=== PATIENT | female | born 1970 | race Caucasian/White ===

== ENCOUNTER → 2019-06-02 13:35 | Outpatient (BNVA) | payer MEDICARE, SELFPAY | PROVIDERS: PCP Urology; Visit Provider Urology | DX: N30.20 Other chronic cystitis without hematuria (principal) | CPT/HCPCS: 81001 ==

== ENCOUNTER → 2019-06-30 14:05 | Outpatient (BNVA) | payer MEDICARE, SELFPAY | PROVIDERS: PCP Urology; Visit Provider Otolaryngology | DX: J32.9 Chronic sinusitis, unspecified (principal); J32.4 Chronic pansinusitis; J34.89 Other specified disorders of nose and nasal sinuses; J34.2 Deviated nasal septum; J34.3 Hypertrophy of nasal turbinates; R47.02 Dysphasia; R13.10 Dysphagia, unspecified; H92.03 Otalgia, bilateral; H93.13 Tinnitus, bilateral | CPT/HCPCS: 31575; 99214 ==

== ENCOUNTER 2019-07-13 10:58 | Outpatient (CLI) | payer MEDICARE, SELFPAY ==
--- NOTE | 2019-07-13 11:30 | CT_ITS ---
WS: [id number] CT PARANASAL SINUSES HISTORY: chronic sinusitis TECHNIQUE: Contiguous 2.5 mm axial images obtained through the sinuses. Images are reconstructed in s agittal and coronal planes. All CT scans at [facility] use at least one of these dose opt imization techniques: automated exposure control; mA and/or kV adjustment per patient size (includes targeted exams where dose is matched to clinical indication); or iterative reconstruction. DLP: 462.53 mGy.cm COMPARISON: None available. Frontal sinuses: Normal. Sphenoid sinus: Normal. Ethmoid sinuses: Normal. Maxillary sinus: Thin septation in the superior antrum of each maxillary sinus. No air-fluid levels o r mucosal thickening. Ostiomeatal unit: Patent with no significant disease. There is a thin septum very close to the RIGHT ostiomeatal unit but not causing obstruction. 3 mm deviation of the nasal septum to the RIGHT without a bony spur. Soft tissues of the orbits and g lobes are negative. CT/CT sinus wo con* [id number] IMPRESSION: 1. No significant sinus disease. 2. Small thin septum in the superior maxillary antra. Do not appear to be caus ing significant obstruction. 3. Mild RIGHT deviation of nasal septum by 3 mm.
== END 2019-07-13 10:59 | disposition home or self-care (01) ==
LOC: CT 11:04
PROVIDERS: Family Provider Nurse Practitioner Family; PCP Nurse Practitioner Family; Visit Provider Otolaryngology
DX: J32.9 Chronic sinusitis, unspecified (principal); J34.2 Deviated nasal septum
CPT/HCPCS: 70486; 81001; 99214

== ENCOUNTER → 2019-08-31 15:00 | Outpatient (BNVA) | payer MEDICARE, SELFPAY | PROVIDERS: Family Provider Nurse Practitioner Family; PCP Nurse Practitioner Family; Visit Provider Urology | DX: N30.20 Other chronic cystitis without hematuria (principal); R39.89 Other symptoms and signs involving the genitourinary system | CPT/HCPCS: 81001 ==

== ENCOUNTER → 2020-02-08 09:57 | Outpatient (BNVA) | payer MEDICARE, SELFPAY | PROVIDERS: Family Provider Nurse Practitioner Family; PCP Nurse Practitioner Family; Visit Provider Urology | DX: R39.89 Other symptoms and signs involving the genitourinary system (principal); N30.10 Interstitial cystitis (chronic) without hematuria | CPT/HCPCS: 81001 ==

== ENCOUNTER 2020-02-16 08:11 | Emergency (ER) | payer MEDICARE, SELFPAY ==
[2020-02-16] VITALS (8 sets, daily range): BP systolic 104–118; BP diastolic 61–72; PULSE 67–88; RESP 16–18; TEMP 36.8–37.3; O2SAT 90–100; BMI 20.5
--- NOTE | 2020-02-16 08:51 | XRR_ITS ---
PROCEDURE INFORMATION: Exam: XR Chest, 1 View Exam date and time: 02/16/2020 9:20 AM Age: 49 years old Clinical indication: Other: Syncope; Prior surgery TECHNIQUE: Imaging protocol: XR of the chest Views: 1 view. COMPARISON: CR Chest 1 [place] [id number] 10/30/2017 11:31 AM FINDINGS: Lungs: Hyperinflation and mild interstitial prominence. Pleural space: No pleural effusion. Heart/Mediastinum: No cardiomegaly. Bones/joints: Unremarkable. XR/XR chest 1V portable [id number] IMPRESSION: Hyperinflation and mild interstitial prominence.
[2020-02-16] MEDS: ondansetron 2 mg/ML SDV 2 mL 4 MG IVP (09:10)
[2020-02-16] MEDS: sodium chloride 0.9% 500 ML 999 ML IV (09:10)
--- NOTE | 2020-02-16 09:19 | ED_ITS ---
HPI - SOB/Dyspnea General: Chief Complaint: Shortness of Breath/Dyspnea Stated Complaint: complainging of all covid symptoms, has been expos Time Seen by Provider: 02/16/20 08:18 History of Present Illness: HPI Narrative: 49-year-old female patient presents to the emergency department with 4 to 5-day onset of cough congestion, not feeling well, reports positive COVID exposure 10 days ago. She reports this morning, began to feel extremely bad, Reports complete exhaustion. Has lost sense of taste and smell. She reports fever of 103 this morning, took Tylenol and ibuprofen, fever has resolved. She reports nausea, decreased appetite, reports feels terrible. MD elicited complaint: shortness of breath, cough and pain with inspiration Context: recent illness Timing: constant Severity: moderate Exacerbating factors: exertion Relieving factors: rest Associated symptoms: Reports chest congestion, cough, fever(s), lightheadedness and nausea; Deny abdominal pain, chest pain, palpitations or vomiting Treatment prior to arrival: other (Ibuprofen and Tylenol) Review of Systems General: Reports: 10 or more systems reviewed and unremarkable except in HPI and below Const: Reports: fever(s), chills, body aches, change in appetite, fatigue and malaise Eyes: Denies: blurry vision or eye redness ENMT: Denies: throat pain, dental pain or disequilibrium Card: Reports: lightheadedness; Denies: chest pain or palpitations Resp: Reports: dyspnea, productive cough and chest congestion GI: Reports: nausea; Denies: abdominal pain, vomiting or diarrhea : Denies: difficulty voiding or dysuria Musc: Denies: back pain Skin/Breast: Denies: rash or pruritus Neuro: Denies: headache(s), weakness in extremities or behavioral changes Karl/Lymph: Denies: easy bruising PFSH ED PFSH: Medical History (Updated 02/16/20 @ 12:44 by LESLIE Leahy) Bladder pain Suspicious for interstitial cystitis. No improvement consistently on antibiotics. Clearly dietary irritants make a huge difference. Dysphasia Interstitial cystitis Nasal septal deformity Nasal turbinate hypertrophy OAB (overactive bladder) Odynophagia Otalgia Recurrent UTI ADAN (stress urinary incontinence, female) Tinnitus Urinary incontinence, mixed Surgical History History of bladder surgery History of cholecystectomy History of hysterectomy History of right knee surgery Family History Father Thyroid disease Mother , at age 75 Stroke Hypertension Social History Smoking and tobacco status: never smoked Alcohol intake: never Adopted: No Caregiver/support person: No Lives independently: No Household members: spouse Marital status: Current occupational status: disabled History of recent travel: No Current gender identity: Female Physical Exam Const: COMMON NORMALS: no acute distress, patient oriented x3, healthy appearing and alert GENERAL APPEARANCE: cooperative, comfortable and well hydrated HENMT: COMMON NORMALS: normocephalic, Normal external nose present and moist oral mucous membranes HEAD & SCALP: normocephalic NOSE: Normal external nose present Eye: COMMON NORMALS: Equal, round and reactive pupils present and EOMs intact bilaterally GENERAL EYE: appearance normal, both eyes and all related structures PUPIL: Yes Equal, round and reactive pupils present Neck/C-Spine: COMMON NORMALS: full ROM and no lymphadenopathy GENERAL: Yes normal visual inspection and Yes trachea midline CERVICAL SPINE: Yes cervical ROM normal Lymph: LYMPHATIC: no lymphadenopathy noted Chest: COMMONS NORMALS: normal inspection of the chest Resp: COMMON NORMALS: normal respiratory effort and clear to auscultation bilaterally AUSCULTATION: clear to auscultation bilaterally Cardio: COMMON NORMALS: regular rhythm, S1 normal heart sound present and S2 normal heart sound present RHYTHM: regular rhythm HEART SOUNDS: S1 normal heart sound present and S2 normal heart sound present GI: COMMON NORMALS: Soft to palpation and non-tender INSPECTION: Yes normal to inspection PALPATION: Yes Soft to palpation : COMMON NORMALS: Yes no CVA tenderness BLADDER/KIDNEY EXAM: Yes no CVA tenderness Back/Pelvis: COMMON NORMALS: no CVA tenderness and thoracic and lumbar spine normal to inspection Extremity: COMMON NORMALS: normal to inspection and capillary refill normal Neuro: COMMON NORMALS: patient oriented x3 and no focal motor deficits SENSORIUM/ORIENTATION: Yes alert Psych: COMMON NORMALS: mental status grossly normal, Normal thought process present and cooperative ACTIVITY/MOTOR BEHAVIOR: Yes appropriate eye contact THOUGHT PROCESS: Normal thought process present Skin: COMMON NORMALS: no rashes or lesions noted and turgor normal GENERAL SKIN EXAM: no rashes or lesions noted and turgor normal Course ED course: 49 year old female presents with COVID symptoms, during COVID screen, she developed epitaxis, controlled with pressure and cool compresses; therefor rapid screen not completed as she does not want another swab. O2 monitoring 93% with ambulation, she requests to go home after fluid and Zofran administered. Able to tolerate PO fluids, D-Dimer negative, Lactate normal, + leukopenia c/w COVID infection. CXR with hyperinflation and interstitial prominence. 2 L NC placed with O2 sat increased to 96%, she requests to go home, does not wish to stay for admission, Home oxygen device sent home with patient. She was counseled on COVID virus, risk of worsening hypoxia and to return to the ED if O2 sat decreases or if vomiting occurs with use of Zofran, verbalized understanding. Vital Signs: Vital signs: Vital Signs Temperature 99.2 F 02/16/20 14:07 Pulse Rate 69 02/16/20 14:07 Respiratory Rate 16 02/16/20 14:07 Blood Pressure 111/72 02/16/20 14:07 Pulse Oximetry 97 02/16/20 14:07 MDM - SOB/Dyspnea Lab Data: Labs: Lab Results 02/16/20 02/16/20 02/16/20 Range/Units 09:00 09:00 09:00 WBC 3.8 L (4.0-10.0) 10^3/ uL RBC 4.32 (4.1-5.3) 10^6/u L Hgb 13.5 (11.5-15.3) g/dL Hct 41.5 (37.0-47.0) % MCV 96.1 (81-99) fL MCH 31.3 (28.0-34.0) pg MCHC 32.5 (30.0-36.0) g/dL RDW 12.6 (12.1-15.1) % Plt Count 181 (130-400) 10^3/c mm MPV 9.6 (7.4-10.4) fL Neut % (Auto) 75.3 % Lymph % (Auto) 14.6 % Desha % (Auto) 9.5 % Eos % (Auto) 0.0 % Baso % (Auto) 0.3 % Neut # (Auto) 2.84 (1.8-7.7) 10^3/u L Lymph # (Auto) 0.6 L (0.8-4.8) 10^3/u L Desha # (Auto) 0.4 (0.2-0.9) 10^3/u L Eos # (Auto) 0.0 (0.0-0.8) 10^3/u L Baso # (Auto) 0.0 (0.0-0.1) 10^3/u L Nucleated RBC % (a uto) 0 % Nucleated RBCs # 0.0 /100WBC D-Dimer 0.31 (0-0.59) ug/mIFE U Sodium 137 (136-145) mmol/L Potassium 3.9 (3.5-5.1) mmol/L Chloride 100 (98-107) mmol/L Carbon Dioxide 24 (22-29) mmol/L Anion Gap 16.9 (5-19) BUN 19 (6-20) mg/dL Creatinine 0.6 (0.5-0.9) mg/dL GFR Calculation 106.3 (90-130) mL/min Glucose 92 (65-115) mg/dL Calculated Osmolal ity 286 (285-295) mOsm/k g Lactate (0.5-2.2) mmol/L Calcium 8.7 (8.5-10.5) mg/dL Ferritin 175 H (15-150) ng/mL Total Bilirubin 0.2 (0.15-1.2) mg/dL AST 24 (0-32) U/L ALT 22 (0-33) U/L Alkaline Phosphata se 64 (35-105) IU/L Total Protein 7.0 (6.6-8.7) g/dL Albumin 4.6 (3.5-5.2) g/dL Globulin 2.4 (1.3-4.6) g/dL 02/16/20 Range/Units 09:55 WBC (4.0-10.0) 10^3/ uL RBC (4.1-5.3) 10^6/u L Hgb (11.5-15.3) g/dL Hct (37.0-47.0) % MCV (81-99) fL MCH (28.0-34.0) pg MCHC (30.0-36.0) g/dL RDW (12.1-15.1) % Plt Count (130-400) 10^3/c mm MPV (7.4-10.4) fL Neut % (Auto) % Lymph % (Auto) % Desha % (Auto) % Eos % (Auto) % Baso % (Auto) % Neut # (Auto) (1.8-7.7) 10^3/u L Lymph # (Auto) (0.8-4.8) 10^3/u L Desha # (Auto) (0.2-0.9) 10^3/u L Eos # (Auto) (0.0-0.8) 10^3/u L Baso # (Auto) (0.0-0.1) 10^3/u L Nucleated RBC % (a uto) % Nucleated RBCs # /100WBC D-Dimer (0-0.59) ug/mIFE U Sodium (136-145) mmol/L Potassium (3.5-5.1) mmol/L Chloride (98-107) mmol/L Carbon Dioxide (22-29) mmol/L Anion Gap (5-19) BUN (6-20) mg/dL Creatinine (0.5-0.9) mg/dL GFR Calculation (90-130) mL/min Glucose (65-115) mg/dL Calculated Osmolal ity (285-295) mOsm/k g Lactate 0.7 (0.5-2.2) mmol/L Calcium (8.5-10.5) mg/dL Ferritin (15-150) ng/mL Total Bilirubin (0.15-1.2) mg/dL AST (0-32) U/L ALT (0-33) U/L Alkaline Phosphata se (35-105) IU/L Total Protein (6.6-8.7) g/dL Albumin (3.5-5.2) g/dL Globulin (1.3-4.6) g/dL Imaging Data^: CXR: Radiologist's impression: [address] [address] XRay Report Signed Patient: Melanie Schofield #: [id number] : 1970Acct#:[id number] Age/Sex: 49 / FADM Date: 02/16/20 Loc: ERRoom/Bed: Attending Dr: Ordering Provider/Ordering MD: Judy Neal Date of Service: 02/16/20 Procedure(s): XR chest 1V portable [id number] Accession Number(s): [id number] Report Number: [id number] PROCEDURE INFORMATION: Exam: XR Chest, 1 View Exam date and time: 02/16/2020 9:20 AM Age: 49 years old Clinical indication: Other: Syncope; Prior surgery TECHNIQUE: Imaging protocol: XR of the chest Views: 1 view. COMPARISON: CR Chest 1 [place] [id number] 10/30/2017 11:31 AM FINDINGS: Lungs: Hyperinflation and mild interstitial prominence. Pleural space: No pleural effusion. Heart/Mediastinum: No cardiomegaly. Bones/joints: Unremarkable. XR/XR chest 1V portable [id number] IMPRESSION: Hyperinflation and mild interstitial prominence. Dictated By:Akin Soto MD Signed By:Akin Soto MDSigned Date/Time:02/16/20 1019 DD/ 1018 Discharge Plan Discharge Patient Disposition: Home Clinical Impression: Suspected 2019-nCoV infection, Acute viral bronchitis Condition: Stable Prescriptions: New Zofran 4 mg tablet 4 mg PO 6XD PRN (Reason: nausea and vomiting) 4 Days Qty: 14 RF: 0 No Action celecoxib [Celebrex] 100 mg capsule 100 mg PO DAILY RF: 0 valacyclovir [Valtrex] 1 gram tablet 1,000 mg PO QDAY PRNRF: 0 tramadol 50 mg tablet 50 mg PO Q6H PRNRF: 0 tizanidine 4 mg capsule 4 mg PO BID PRNRF: 0 sumatriptan succinate 100 mg tablet 100 mg PO .prn RF: 0 clonazepam 2 mg tablet 2 mg PO QDAY RF: 0 diphenhydramine-acetaminophen [Tylenol PM Extra Strength] 25-500 mg tablet 1 tab PO Q6H PRNRF: 0 melatonin 10 mg capsule 10 mg PO QDAY RF: 0 loratadine [Claritin] 10 mg tablet 10 mg PO QDAY RF: 0 ibuprofen 800 mg tablet 800 mg PO Q8H RF: 0 Aimovig Autoinjector 140 mg/mL auto-injector 140 mg SUBCUT .as needed RF: 0 dexamethasone sodium phosphate 10 mg/mL solution 10 mg IM ONCE Qty: 1 RF: 0 Elmiron 100 mg capsule 200 mg PO BID Qty: 120 RF: 12 nitrofurantoin monohyd/m-cryst 100 mg capsule 100 mg PO BID RF: 0 Discharge Orders: Discharge Order (Routine); Ordered 02/16/20 Ordered By: Judy Neal Referrals: RENATA Gutiérrez, [employer] LAWYER [Primary Care Provider] - Discharge Diet: Advance as tolerated and Clear Liquid Discharge Activity: Limit activity as instructed Patient Instructions: Viral Syndrome (ED) Activity Restrictions/Additional Instructions: Rest at home until feeling better, quarantine to your home, COVID results will be back tomorrow Continue with oxygen therapy, continue to monitor your oxygen saturation, if oxygen saturation falls to 90% or below, you are to return to the emergency department Use Zofran as needed for nausea, return to the emergency room if you develop vomiting with use of Zofran If you develop difficulty breathing, inability to catch her breath, confusion or severe chest pain, you are to return to the emergency department Push fluids, appetite will be decreased, expected with COVID-19 illness Follow-up with your primary care physician via telemedicine in 2 to 3 days Discharge Date/Time: 02/16/20 14:09 Coding Level of Care Code ED Patient Access Representative for Chg Fwd Exam Comprehensive
--- NOTE | 2020-02-16 09:45 | PC.NURSE ---
PATIENT HAVING RIGHT SIDED EPISTAXIS WITH MODERATE BLEEDING LASTING APPROX 5 MINS. BLEEDING STOPPED WITH PRESSURE. PROVIDER NOTIFIED. NO NEW ORDERS. PRIMARY NURSE ALSO NOTIFIED.
[2020-02-16 09:54] LABS: Basophils % 0.3 %; Hematocrit 41.5 % (37.0-47.0); Hemoglobin 13.5 g/dL (11.5-15.3); Lymphocytes # 0.6 10^3/uL (0.8-4.8); Lymphocytes % 14.6 %; Mean Corpuscular HGB Conc 32.5 g/dL (30.0-36.0); Mean Corpuscular Hemoglobin 31.3 pg (28.0-34.0); Mean Corpuscular Volume 96.1 fL (81-99); Mean Platelet Volume 9.6 fL (7.4-10.4); Monocytes # 0.4 10^3/uL (0.2-0.9); Monocytes % 9.5 %; Neutrophils # 2.84 10^3/uL (1.8-7.7); Neutrophils % 75.3 %; Nucleated Red Blood Cells % 0 %; Platelet Count 181 10^3/cmm (130-400); Red Blood Count 4.32 10^6/uL (4.1-5.3); Red Cell Distribution Width 12.6 % (12.1-15.1); White Blood Count 3.8 10^3/uL (4.0-10.0)
[2020-02-16 10:11] LABS: D Dimer 0.31 ug/mIFEU (0-0.59)
[2020-02-16 10:17] LABS: Lactate (Lactic Acid level) 0.7 mmol/L (0.5-2.2)
--- NOTE | 2020-02-16 10:49 | PC.NURSE ---
O2 sat dropping down to 91-92 % Judy Patel gave verbal order to place NC @ 2 lpms
[2020-02-16 10:57] LABS: Alanine Aminotransferase 22 U/L (0-33); Albumin Level 4.6 g/dL (3.5-5.2); Alkaline Phosphatase 64 IU/L (35-105); Anion Gap 16.9 (5-19); Aspartate Amino Transferase 24 U/L (0-32); Blood Urea Nitrogen 19 mg/dL (6-20); Calcium 8.7 mg/dL (8.5-10.5); Carbon Dioxide 24 mmol/L (22-29); Chloride 100 mmol/L (98-107); Ferritin 175 ng/mL (15-150); Globulin 2.4 g/dL (1.3-4.6); Glomerular Filtration Rate 106.3 mL/min (90-130); Glucose 92 mg/dL (65-115); Osmolality Calculated 286 mOsm/kg (285-295); Potassium 3.9 mmol/L (3.5-5.1); Sodium 137 mmol/L (136-145); Total Bilirubin 0.2 mg/dL (0.15-1.2)
--- NOTE | 2020-02-16 13:31 | DCPLANNER ---
internet marketing manager was asked to arrange home O2 for patient. internet marketing manager spoke with patient was given verbal consent to use [facility] for oxygen, a patient choice letter was filled and signed picking [facility] for oxygen was scanned to put into patients chart. internet marketing manager faxed order for home O2 to HOME, they will bring oxygen to patient in the ED.
--- NOTE | 2020-02-16 14:09 | DCPLANNER ---
maintenance manager was asked to schedule a follow up appointment for patient with primary care. maintenance manager called the [facility] clinic, a follow up appointment is scheduled for Tuesday, February 18, 2020 at 1:00 with RENATA Gutiérrez. This will be a telehealth visit, clinic will call patient with appointment information.
[2020-02-18 12:22] LABS: Quest SARS-CoV-2 RNA DETECTED (NOT DETECTED)
--- NOTE | 2020-02-18 17:12 | PC.NURSE ---
Pt called and notified of positive COVID result.
--- NOTE | 2020-02-22 14:06 | DCPLANNER ---
Patient had a follow up appointment scheduled for 02.18.20 with [facility]. Patient did attend appointment.
== END 2020-02-16 14:09 | disposition home or self-care (01) ==
PROVIDERS: Emergency Provider Nurse Practitioner Family; PCP Nurse Practitioner Family
DX: U07.1 COVID-19 (principal); J20.8 Acute bronchitis due to other specified organisms
CPT/HCPCS: 12345; 71045; 80053; 82728; 83605; 85025; 85378; 87635; 96374; 96375; 99283; 99284; J2405; J7040

== ENCOUNTER → 2020-04-17 16:03 | Outpatient (BNVA) | payer MEDICARE, SELFPAY | PROVIDERS: PCP Nurse Practitioner Family; Visit Provider Nurse Practitioner Family | DX: N30.10 Interstitial cystitis (chronic) without hematuria (principal) | CPT/HCPCS: 81003 ==

== ENCOUNTER → 2020-05-03 08:28 | Outpatient (BNVA) | payer MEDICARE, SELFPAY | PROVIDERS: PCP Nurse Practitioner Family; Visit Provider Podiatrist Foot & Ankle Surgery | DX: S99.921A Unspecified injury of right foot, initial encounter (principal) | CPT/HCPCS: 73630; 97760; L4361 ==

== ENCOUNTER 2020-05-03 13:23 | Outpatient (CLI) | payer MEDICARE, SELFPAY | END 2020-05-03 13:24 | disposition home or self-care (01) | LOC: SPT 13:25 | PROVIDERS: PCP Nurse Practitioner Family; Visit Provider Podiatrist Foot & Ankle Surgery | DX: Z46.89 Encounter for fitting and adjustment of other specified devices (principal); M76.71 Peroneal tendinitis, right leg | CPT/HCPCS: 97760; L4361 ==

== ENCOUNTER 2020-05-24 15:18 | Outpatient (CLI) | payer MEDICARE, SELFPAY | END 2020-05-24 15:19 | disposition home or self-care (01) | LOC: SPT 15:18 | PROVIDERS: PCP Nurse Practitioner Family; Visit Provider Podiatrist Foot & Ankle Surgery | DX: Z46.89 Encounter for fitting and adjustment of other specified devices (principal); M76.71 Peroneal tendinitis, right leg | CPT/HCPCS: L1902 ==

== ENCOUNTER → 2020-05-25 10:54 | Outpatient (BNVA) | payer MEDICARE, SELFPAY | PROVIDERS: PCP Nurse Practitioner Family; Visit Provider Urology | DX: N30.10 Interstitial cystitis (chronic) without hematuria (principal) | CPT/HCPCS: 81003 ==

== ENCOUNTER → 2020-06-20 11:20 | Outpatient (BNVA) | payer MEDICARE, SELFPAY | PROVIDERS: PCP Nurse Practitioner Family; Visit Provider Nurse Practitioner Family | DX: N30.10 Interstitial cystitis (chronic) without hematuria (principal) | CPT/HCPCS: 81003 ==

== ENCOUNTER → 2020-07-03 13:21 | Outpatient (BNVA) | payer MEDICARE, SELFPAY | PROVIDERS: PCP Nurse Practitioner Family; Visit Provider Nurse Practitioner Family | DX: N30.10 Interstitial cystitis (chronic) without hematuria (principal); M54.5 Low back pain | CPT/HCPCS: 81003 ==

== ENCOUNTER → 2020-10-09 09:04 | Outpatient (BNVA) | payer MEDICARE, SELFPAY | PROVIDERS: PCP Nurse Practitioner Family; Visit Provider Nurse Practitioner Family | DX: Z13.6 Encounter for screening for cardiovascular disorders (principal); D64.9 Anemia, unspecified; L40.50 Arthropathic psoriasis, unspecified; E55.9 Vitamin D deficiency, unspecified; R53.83 Other fatigue; Z79.899 Other long term (current) drug therapy | CPT/HCPCS: 80053; 80061; 81003; 82306; 82607; 82746; 83036; 83550; 84439; 84443; 84550; 85025; 85651; 86038; 86140; 86431 ==

== ENCOUNTER → 2020-12-05 11:00 | Outpatient (BNVA) | payer MEDICARE, SELFPAY | PROVIDERS: PCP Nurse Practitioner Family; Visit Provider Internal Medicine Rheumatology | DX: M19.90 Unspecified osteoarthritis, unspecified site (principal); Z79.899 Other long term (current) drug therapy; Z11.59 Encounter for screening for other viral diseases; Z11.1 Encounter for screening for respiratory tuberculosis; R21 Rash and other nonspecific skin eruption; Z71.89 Other specified counseling; F17.200 Nicotine dependence, unspecified, uncomplicated; M45.9 Ankylosing spondylitis of unspecified sites in spine | CPT/HCPCS: 36415; 71046; 72100; 72202; 73130; 73630; 86480; 86704; 86803; 86812; 87340; 87806; 99204 ==

== ENCOUNTER 2020-12-05 12:35 | Outpatient (CLI) | payer MEDICARE, SELFPAY ==
--- NOTE | 2020-12-05 12:42 | XR_ITS ---
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 Findings: No fractures or dislocations are seen. The soft tissues are unremarkable. The joint spaces are normal No periarticular demineralization or calcifications are seen. XR/XR hand LT min 3V* [id number] Impression: Negative left hand.
--- NOTE | 2020-12-05 12:42 | XR_ITS ---
WS: [id number] Lumbar spine, 3 views, 12/05/2020 Clinical Data: Z79.899 - Other assistant terminal manager (current) drug therapy Comparison: None. Findings: No compression fractures or subluxation is seen. No disc space narrowing is seen. The transverse proc esses and SI joints are normal. There are clips in the right upper quadrant from a cholecystectomy. There is a large amount of fecal material in the colon. XR/XR lumbar spine 2-3V* 98117 Impression: Negative lumbar spine.
--- NOTE | 2020-12-05 12:42 | XR_ITS ---
WS: [id number] Right foot, 3 views, 12/05/2020 Clinical Data: Z79.899 - Other penitentiary (current) drug therapy Comparison: Right foot, 05/03/2020. Findings: No fractures or dislocations are seen. No bone destruction or erosion is noted. The joint spaces and soft tissues are normal. XR/XR foot RT min 3V* [id number] Impression: Negative right foot.
--- NOTE | 2020-12-05 12:42 | XR_ITS ---
WS: [id number] Right hand, 3 views, 12/05/2020 Clinical Data: Z79.899 - Other senior care (current) drug therapy Comparison: None. Findings: No fractures or dislocations are seen. The soft tissues are unremarkable. The joint space s are normal No periarticular demineralization or calcifications are seen. XR/XR hand RT min 3V* 11409 Impression: Negative right hand.
--- NOTE | 2020-12-05 12:42 | XR_ITS ---
WS: [id number] Left foot, 3 views, 12/05/2020 Clinical Data: Z79.899 - Other long term care pharmacist (current) drug therapy Comparison: None. Findings: No fractures or dislocations are seen. No bone destruction or erosion is noted. The joint spaces and soft tissues are normal. XR/XR foot LT min 3V* [id number] Impression: Negative left foot.
--- NOTE | 2020-12-05 12:42 | XR_ITS ---
WS: [id number] Chest 2 views, 12/05/2020 Clinical Data: M19.90 - Unspecified osteoarthritis, unspecified site Comparison: None. Findings: No nodules, masses or effusions are seen. The heart is normal. The pulmonary vascularity is not increased. No pneumonia or pneumothorax is seen. There is a clip in the right upper quadrant fro m a cholecystectomy. XR/XR chest 2V* [id number] Impression: Negative chest.
--- NOTE | 2020-12-05 12:42 | XR_ITS ---
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 Findings: The SI joints are normal in width. No erosion, sclerosis or destruction is seen. There are no fractur es or dislocations. The adjacent visualized pelvis and hips are unremarkable. There are surgical clips adjacent to the pu bic symphysis from a probable hernia repair. XR/XR sacroiliac jts m 3V [id number] Impression: Negative SI joints.
[2020-12-05 14:46] LABS: Hepatitis B Core AB, Total Non-Reactive (Nonreactive); Hepatitis B Surface Antigen Non-Reactive (Nonreactive); Hepatitis C Virus Antibody Non-Reactive (Nonreactive)
[2020-12-05 15:13] LABS: HIV 1 & 2 Antibody Non-Reactive (Non-Reactiv); HIV 1 & 2 Antigen Non-Reactive (Non-Reactiv)
[2020-12-07 15:02] LABS: Quantiferon Mitogen 7.68 IU/mL; Quantiferon Nil 0.01 IU/mL; Quantiferon TB Gold NEGATIVE (NEGATIVE)
[2020-12-08 15:46] LABS: HLA-B27 NEGATIVE (NEGATIVE)
== END 2020-12-05 12:36 | disposition home or self-care (01) ==
PROVIDERS: PCP Nurse Practitioner Family; Visit Provider Internal Medicine Rheumatology
DX: M19.90 Unspecified osteoarthritis, unspecified site (principal); M45.9 Ankylosing spondylitis of unspecified sites in spine; Z79.899 Other long term (current) drug therapy; Z11.59 Encounter for screening for other viral diseases; Z11.1 Encounter for screening for respiratory tuberculosis
CPT/HCPCS: 36415; 71046; 72100; 72202; 73130; 73630; 86480; 86704; 86803; 86812; 87340; 87806

== ENCOUNTER → 2021-01-15 09:20 | Outpatient (BNVA) | payer MEDICARE, SELFPAY | PROVIDERS: PCP Nurse Practitioner Family; Visit Provider Internal Medicine Rheumatology | DX: M19.90 Unspecified osteoarthritis, unspecified site (principal); Z71.89 Other specified counseling; Z79.899 Other long term (current) drug therapy | CPT/HCPCS: 36415; 80076; 82565; 85025; 86140 ==

== ENCOUNTER → 2021-01-23 14:04 | Outpatient (BNVA) | payer MEDICARE, SELFPAY | PROVIDERS: PCP Nurse Practitioner Family; Visit Provider Internal Medicine Rheumatology | DX: M19.90 Unspecified osteoarthritis, unspecified site (principal); R21 Rash and other nonspecific skin eruption; Z79.899 Other long term (current) drug therapy; Z82.61 Family history of arthritis; Z71.89 Other specified counseling | CPT/HCPCS: 99214 ==

== ENCOUNTER → 2021-04-25 13:27 | Outpatient (BNVA) | payer MEDICARE, SELFPAY | PROVIDERS: PCP Nurse Practitioner Family; Visit Provider Internal Medicine Rheumatology | DX: L40.50 Arthropathic psoriasis, unspecified (principal); R21 Rash and other nonspecific skin eruption; Z79.899 Other long term (current) drug therapy; Z71.89 Other specified counseling | CPT/HCPCS: 99214 ==

== ENCOUNTER → 2021-08-14 13:47 | Outpatient (BNVA) | payer MEDICARE, SELFPAY | PROVIDERS: PCP Nurse Practitioner Family; Visit Provider Internal Medicine Rheumatology | DX: L40.50 Arthropathic psoriasis, unspecified (principal); Z79.899 Other long term (current) drug therapy; Z82.61 Family history of arthritis; Z71.89 Other specified counseling | CPT/HCPCS: 36415; 80076; 82565; 85025; 86140; 99214 ==

== ENCOUNTER → 2021-09-27 11:41 | Outpatient (BNVA) | payer MEDICARE, SELFPAY | PROVIDERS: PCP Nurse Practitioner Family; Visit Provider Specialist | DX: M17.11 Unilateral primary osteoarthritis, right knee | CPT/HCPCS: 20610; J1100; J2795; J3301 ==

== ENCOUNTER → 2021-11-06 13:18 | Outpatient (BNVA) | payer MEDICARE, SELFPAY | PROVIDERS: PCP Nurse Practitioner Family; Visit Provider Podiatrist Foot & Ankle Surgery | DX: M76.71 Peroneal tendinitis, right leg (principal); M79.671 Pain in right foot | CPT/HCPCS: 20550; J1100; J3301; J3490 ==

== ENCOUNTER → 2021-11-21 08:41 | Outpatient (BNVA) | payer MEDICARE, SELFPAY | PROVIDERS: PCP Nurse Practitioner Family; Visit Provider Nurse Practitioner Family | DX: N30.10 Interstitial cystitis (chronic) without hematuria (principal) | CPT/HCPCS: 51700; 99213; J0690; J1644; J1720; J3490 ==

== ENCOUNTER → 2021-12-13 11:33 | Outpatient (BNVA) | payer MEDICARE, SELFPAY | PROVIDERS: PCP Nurse Practitioner Family; Visit Provider Nurse Practitioner Family | DX: Z79.899 Other long term (current) drug therapy (principal); R39.15 Urgency of urination; T63.481A Toxic effect of venom of other arthropod, accidental (unintentional), initial encounter | CPT/HCPCS: 80053; 85025; 86308 ==

== ENCOUNTER → 2021-12-25 15:07 | Outpatient (BNVA) | payer MEDICARE, SELFPAY | PROVIDERS: PCP Nurse Practitioner Family; Visit Provider Internal Medicine Rheumatology | DX: L40.50 Arthropathic psoriasis, unspecified (principal); L40.0 Psoriasis vulgaris; Z79.899 Other long term (current) drug therapy; Z71.89 Other specified counseling; Z82.61 Family history of arthritis | CPT/HCPCS: 99214 ==

== ENCOUNTER → 2021-12-27 09:56 | Outpatient (BNVA) | payer MEDICARE, SELFPAY | PROVIDERS: PCP Nurse Practitioner Family; Visit Provider Specialist | DX: M17.11 Unilateral primary osteoarthritis, right knee (principal) | CPT/HCPCS: 20610; J1100; J2795; J3301 ==

== ENCOUNTER → 2022-01-23 10:03 | Outpatient (BNVA) | payer MEDICARE, SELFPAY | PROVIDERS: PCP Nurse Practitioner Family; Visit Provider Nurse Practitioner Family | DX: N30.10 Interstitial cystitis (chronic) without hematuria (principal) | CPT/HCPCS: 51700; 99212; J1580; J1644; J1720; J3490 ==

== ENCOUNTER → 2022-03-05 14:54 | Outpatient (BNVA) | payer MEDICARE, SELFPAY | PROVIDERS: Visit Provider Internal Medicine Rheumatology | DX: L40.50 Arthropathic psoriasis, unspecified (principal); Z79.899 Other long term (current) drug therapy; Z71.89 Other specified counseling; Z82.61 Family history of arthritis | CPT/HCPCS: 80076; 82565; 85025; 86140; 99214 ==

== ENCOUNTER → 2022-03-21 10:35 | Outpatient (BNVA) | payer MEDICARE, SELFPAY | PROVIDERS: Visit Provider Obstetrics & Gynecology | DX: Z12.4 Encounter for screening for malignant neoplasm of cervix (principal) | CPT/HCPCS: 87624 ==

== ENCOUNTER → 2022-04-18 14:07 | Outpatient (BNVA) | payer MEDICARE, SELFPAY | PROVIDERS: Visit Provider Specialist | DX: M17.11 Unilateral primary osteoarthritis, right knee (principal); Z71.89 Other specified counseling | CPT/HCPCS: 20610; 73560; 73565; 99213; J1100; J2795; J3301 ==

== ENCOUNTER → 2022-07-11 10:37 | Outpatient (BNVA) | payer MEDICARE, SELFPAY | PROVIDERS: PCP Nurse Practitioner; Visit Provider Specialist | DX: M17.11 Unilateral primary osteoarthritis, right knee (principal); Z71.89 Other specified counseling | CPT/HCPCS: 20610; J1100; J2795; J3301 ==

== ENCOUNTER → 2022-08-06 14:25 | Outpatient (BNVA) | payer MEDICARE, SELFPAY | PROVIDERS: PCP Nurse Practitioner; Visit Provider Internal Medicine Rheumatology | DX: L40.50 Arthropathic psoriasis, unspecified (principal); L40.0 Psoriasis vulgaris; Z79.899 Other long term (current) drug therapy; Z71.89 Other specified counseling | CPT/HCPCS: 99204 ==

== ENCOUNTER → 2022-10-17 08:37 | Outpatient (BNVA) | payer MEDICARE, SELFPAY | PROVIDERS: PCP Nurse Practitioner; Visit Provider Specialist | DX: M17.11 Unilateral primary osteoarthritis, right knee (principal) | CPT/HCPCS: 20610; J1100; J2795; J3301 ==

== ENCOUNTER → 2022-11-06 09:24 | Outpatient (BNVA) | payer MEDICARE, SELFPAY | PROVIDERS: PCP Nurse Practitioner; Visit Provider Nurse Practitioner Family | DX: R30.0 Dysuria (principal) | CPT/HCPCS: 81000 ==

== ENCOUNTER → 2022-11-12 13:24 | Outpatient (BNVA) | payer MEDICARE, SELFPAY | PROVIDERS: PCP Nurse Practitioner; Visit Provider Internal Medicine Rheumatology | DX: L40.50 Arthropathic psoriasis, unspecified (principal); Z79.899 Other long term (current) drug therapy; L40.0 Psoriasis vulgaris; Z71.89 Other specified counseling | CPT/HCPCS: 99214 ==

== ENCOUNTER → 2023-01-02 13:33 | Outpatient (BNVA) | payer MEDICARE, SELFPAY | PROVIDERS: PCP Nurse Practitioner; Referring Provider Nurse Practitioner Family; Visit Provider Physician Assistant | DX: M54.40 Lumbago with sciatica, unspecified side (principal); M54.17 Radiculopathy, lumbosacral region; M47.816 Spondylosis without myelopathy or radiculopathy, lumbar region | CPT/HCPCS: 72110; 99203 ==

== ENCOUNTER 2023-01-16 13:29 | Outpatient (CLI) | payer MEDICARE, SELFPAY ==
--- NOTE | 2023-01-16 13:45 | MR_ITS ---
WS: [id number] MRI LUMBAR SPINE NONCONTRAST TECHNIQUE: Sagittal T1, T2 and STIR imaging. Axial T1 and T2 imaging. CLINICAL INFORMATION: M54.40 - Lumbago with sciatica, unspecified side COMPARISON: None. FINDINGS: Mild lumbar curve. No acute compression. No high-grade central canal stenosis. L1-L2: Mild facet arthropathy. Spinal canal and foramen are patent. L2-L3: Mild facet arthropathy. Spinal canal and foramen are patent. L3-L4: No significant disc bulging. Mild facet arthropathy. Spinal canal and foramina are patent. L4-L5: Mild annular bulging. Impingement LEFT subarticular recess and traversing LEFT L5 nerve root. Moderate facet arthropathy. Spinal canal and foramen are patent. L5-S1: Mild annular bulging. Slight contact of the traversing LEFT S1 nerve root. Moderate facet arth ropathy. Spinal canal and foramen are patent. Visualized pelvic bony structures: Normal. Paravertebral soft tissues: Normal. IMPRESSION: 1. Mild lumbar curve. No acute compression. No high-grade central canal stenosis. 2. Mild annular bulging L4-5 impinges the LEFT subarticular recess and traversing LEFT L5 nerve root . 3. Slight narrowing of the LEFT L5-S1 subarticular recess. 4. Moderate facet arthropathy L3-L5.
== END 2023-01-16 13:30 | disposition home or self-care (01) ==
PROVIDERS: PCP Nurse Practitioner; Visit Provider Nurse Practitioner Family
DX: M47.816 Spondylosis without myelopathy or radiculopathy, lumbar region (principal); M54.40 Lumbago with sciatica, unspecified side; G89.29 Other chronic pain
CPT/HCPCS: 72148

== ENCOUNTER → 2023-01-30 13:59 | Outpatient (BNVA) | payer MEDICARE, SELFPAY | PROVIDERS: PCP Nurse Practitioner; Visit Provider Physician Assistant | DX: M47.816 Spondylosis without myelopathy or radiculopathy, lumbar region (principal) | CPT/HCPCS: 99213 ==

== ENCOUNTER 2023-05-07 15:01 | Outpatient (CLI) | payer MEDICARE, SELFPAY ==
--- NOTE | 2023-05-07 15:00 | MM_ITS ---
WS: [id number] BILATERAL 3D TOMOSYNTHESIS DIGITAL SCREENING MAMMOGRAPHY WITH CAD CLINICAL INFORMATION: Z12.39 - Encounter for other screening for malignant neop... HISTORY: Screening mammogram. No current complaints. COMPARISON: None. TECHNIQUE: Bilateral CC and MLO views. FINDINGS: Scattered fibroglandular densities bilaterally. No suspicious focal mass, asymmetry, calcifications, or architectural distortion. No evidence of malignancy. IMPRESSION: MM/[place] [id number] BI-RADS: 1-Negative FOLLOW UP: 1 Year Follow-up Recommend return to annual screening mammography.
== END 2023-05-07 15:02 | disposition home or self-care (01) ==
LOC: MOBLMAM 15:05
PROVIDERS: PCP Nurse Practitioner; Visit Provider Nurse Practitioner
DX: Z12.31 Encounter for screening mammogram for malignant neoplasm of breast
CPT/HCPCS: 77063; 77067

== ENCOUNTER → 2023-05-12 08:31 | Outpatient (BNVA) | payer MEDICARE, SELFPAY | PROVIDERS: PCP Nurse Practitioner; Visit Provider Nurse Practitioner | DX: M17.11 Unilateral primary osteoarthritis, right knee | CPT/HCPCS: 20610; J1100; J2795; J3301 ==

== ENCOUNTER → 2023-08-22 08:33 | Outpatient (BNVA) | payer MEDICARE, SELFPAY | PROVIDERS: PCP Nurse Practitioner; Visit Provider Specialist | DX: M17.11 Unilateral primary osteoarthritis, right knee (principal) | CPT/HCPCS: 20610; J1100; J2795; J3301 ==

== ENCOUNTER → 2023-09-02 10:08 | Outpatient (BNVA) | payer MEDICARE, SELFPAY | PROVIDERS: PCP Nurse Practitioner Family; Visit Provider Nurse Practitioner Family | DX: N30.10 Interstitial cystitis (chronic) without hematuria (principal); F41.9 Anxiety disorder, unspecified; R23.2 Flushing; D64.9 Anemia, unspecified; L40.50 Arthropathic psoriasis, unspecified; R47.02 Dysphasia; Z79.899 Other long term (current) drug therapy | CPT/HCPCS: 80053; 80061; 81003; 83036; 84443; 85025 ==

== ENCOUNTER → 2023-12-05 08:30 | Outpatient (BNVA) | payer MEDICARE, SELFPAY | PROVIDERS: PCP Nurse Practitioner Family; Visit Provider Specialist | DX: M17.11 Unilateral primary osteoarthritis, right knee (principal) | CPT/HCPCS: 20610; J1100; J2795; J3301 ==

== ENCOUNTER 2023-12-31 12:05 | Outpatient (CLI) | payer MEDICARE, SELFPAY | END 2023-12-31 12:06 | disposition home or self-care (01) | LOC: SPT 12:05 | PROVIDERS: PCP Nurse Practitioner Family; Visit Provider Specialist | DX: Z46.89 Encounter for fitting and adjustment of other specified devices (principal); M25.561 Pain in right knee; M25.361 Other instability, right knee | CPT/HCPCS: 97760; L1812 ==

== ENCOUNTER → 2024-01-23 15:06 | Outpatient (BNVA) | payer MEDICARE, SELFPAY | PROVIDERS: PCP Nurse Practitioner Family; Referring Provider Nurse Practitioner Family; Visit Provider Obstetrics & Gynecology | DX: R32 Unspecified urinary incontinence (principal) | CPT/HCPCS: 84315 ==

== ENCOUNTER → 2024-03-08 13:28 | Outpatient (BNVA) | payer MEDICARE, SELFPAY | PROVIDERS: PCP Nurse Practitioner Family; Visit Provider Obstetrics & Gynecology | DX: R10.2 Pelvic and perineal pain (principal); G89.29 Other chronic pain; Z90.710 Acquired absence of both cervix and uterus; Z98.890 Other specified postprocedural states | CPT/HCPCS: 76830 ==

== ENCOUNTER → 2024-04-23 08:06 | Outpatient (BNVA) | payer MEDICARE, SELFPAY | PROVIDERS: PCP Nurse Practitioner Family; Visit Provider Specialist | DX: M25.561 Pain in right knee (principal); M17.11 Unilateral primary osteoarthritis, right knee; Z71.89 Other specified counseling | CPT/HCPCS: 20610; J1100; J2795; J3301 ==

== ENCOUNTER 2024-05-04 15:38 | Outpatient (CLI) | payer MEDICARE, SELFPAY ==
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
== END 2024-05-04 15:39 | disposition home or self-care (01) ==
PROVIDERS: PCP Nurse Practitioner Family; Visit Provider Anesthesiology Pain Medicine
DX: M25.551 Pain in right hip (principal)
CPT/HCPCS: 72170; 72220; 73502

== ENCOUNTER 2024-05-12 11:20 | Outpatient (CLI) | payer MEDICARE, SELFPAY ==
--- NOTE | 2024-05-12 11:20 | MM_ITS ---
WS: [id number] SCREENING DIGITAL TOMOSYNTHESIS MAMMOGRAM WITH CAD HISTORY: SCREENING COMPARISON: 05/07/2023, 01/11/2016 Bilateral CC and MLO with tomosynthesis views submitted. Synthetic mammography reviewed. Computer aid ed detection analyzed. Breast composition: There are scattered areas of fibroglandular density. No suspicious masses, microc alcifications or architectural distortion. MM/MM scr BI tomosynthesis [id number] IMPRESSION: BI-RADS: 1 - Negative. FOLLOW UP: 1 Year Follow-up
== END 2024-05-12 11:21 | disposition home or self-care (01) ==
PROVIDERS: PCP Nurse Practitioner Family; Visit Provider Nurse Practitioner Family
DX: Z12.31 Encounter for screening mammogram for malignant neoplasm of breast (principal); R92.323 Mammographic fibroglandular density, bilateral breasts
CPT/HCPCS: 77063; 77067

== ENCOUNTER → 2024-05-31 08:41 | Outpatient (BNVA) | payer MEDICARE, SELFPAY | PROVIDERS: PCP Nurse Practitioner Family; Visit Provider Obstetrics & Gynecology | DX: N39.46 Mixed incontinence (principal); N81.10 Cystocele, unspecified; N32.81 Overactive bladder | CPT/HCPCS: 80053; 81001; 85025 ==

== ENCOUNTER → 2024-06-14 09:46 | Outpatient (BNVA) | payer MEDICARE, SELFPAY | PROVIDERS: PCP Nurse Practitioner Family; Visit Provider Specialist | DX: M25.561 Pain in right knee (principal) | CPT/HCPCS: 73560; 73565; 99214 ==

== ENCOUNTER 2024-06-22 11:27 | Outpatient (CLI) | payer MEDICARE, SELFPAY ==
--- NOTE | 2024-06-22 11:45 | MR_ITS ---
WS: [id number] MRI RIGHT KNEE NONCONTRAST TECHNIQUE: Axial PD, coronal PD fat sat, coronal PD, sagittal PD, and sagittal PD fat-sat images obtained. CLINICAL INFORMATION: positive mcmurrays COMPARISON: None. FINDINGS: Distal quadriceps and patella tendons are intact. Hypertrophic patella. Diffuse increased T1 and T2 signal abnormality involving the ACL with thickening compatible with mucoid degeneration. PCL appears intact. Moderate tricompartmental arthritis. Small amount of subchondral edema involving the anterolateral tibial plateau adjacent to the tibial spine. Moderate chondromalacia patella. Medial and lateral patellar retinaculum appear intact. Small lobulated popliteal cyst measuring 0.5 x 2.4 cm. Normal lateral collateral ligament. Normal medial collateral ligament. Moderate suprasellar effusion. Chronic thinning of the medial and lateral meniscus. Complex tear with blunting involving the anterior horn lateral meniscus and horizontal tear involving the posterior horn medial meniscus with extension to the articular surface and meniscal root. Peripheral extrusion of the lateral meniscus. MR/MR knee RT wo con* [id number] IMPRESSION: 1. Mucoid degeneration ACL. PCL is intact. 2. Horizontal tear involving the posterior horn medial meniscus extending to t he articular surface and meniscal root. 3. Blunting with complex tear and/or postoperative changes involving the anter ior horn lateral meniscus. 4. Moderate tricompartmental arthritis. Moderate chondromalacia patella. 5. Small amount of subchondral cystic change involving the lateral tibial plat eau adjacent to the tibial spine. 6. Small suprapatellar effusion. Outbridge grading: grade III: partial-thickness cartilage loss with focal ulcer ation
== END 2024-06-22 11:28 | disposition home or self-care (01) ==
LOC: RAD 11:30
PROVIDERS: PCP Nurse Practitioner Family; Visit Provider Specialist
DX: S83.241A Other tear of medial meniscus, current injury, right knee, initial encounter (principal); M25.561 Pain in right knee; S83.281A Other tear of lateral meniscus, current injury, right knee, initial encounter; M23.611 Other spontaneous disruption of anterior cruciate ligament of right knee; X58.XXXA Exposure to other specified factors, initial encounter; R93.6 Abnormal findings on diagnostic imaging of limbs; M13.861 Other specified arthritis, right knee; M22.41 Chondromalacia patellae, right knee; M71.21 Synovial cyst of popliteal space [Baker], right knee
CPT/HCPCS: 73721

== ENCOUNTER 2024-10-03 05:00 | Outpatient (RCR) | payer MEDICARE, SELFPAY | END 2024-11-01 23:59 | disposition home or self-care (01) | LOC: WPT 05:00 | PROVIDERS: PCP Nurse Practitioner Family; Visit Provider Nurse Practitioner Family | DX: Z98.1 Arthrodesis status (principal) | CPT/HCPCS: 97161 ==

== ENCOUNTER 2024-11-02 05:00 | Outpatient (RCR) | payer MEDICARE, SELFPAY | END 2024-12-02 23:59 | disposition home or self-care (01) | LOC: WPT 05:00 | PROVIDERS: PCP Nurse Practitioner Family; Visit Provider Nurse Practitioner Family | DX: Z98.1 Arthrodesis status (principal) | CPT/HCPCS: 97110; 97112; 97530 ==

== ENCOUNTER 2024-12-03 05:00 | Outpatient (RCR) | payer MEDICARE, SELFPAY | END 2025-01-02 23:59 | disposition home or self-care (01) | LOC: WPT 05:00 | PROVIDERS: PCP Nurse Practitioner Family; Visit Provider Nurse Practitioner Family | DX: Z98.1 Arthrodesis status (principal) | CPT/HCPCS: 97110; 97112; 97140; 97530 ==

== ENCOUNTER 2025-01-03 05:00 | Outpatient (RCR) | payer MEDICARE, SELFPAY | END 2025-02-01 23:59 | disposition home or self-care (01) | LOC: WPT 05:00 | PROVIDERS: PCP Nurse Practitioner Family; Visit Provider Nurse Practitioner Family | DX: Z98.1 Arthrodesis status (principal) | CPT/HCPCS: 97110; 97112; 97140; 97530 ==

== ENCOUNTER 2025-02-03 08:28 | Outpatient (RCR) | payer MEDICARE, SELFPAY | END 2025-03-04 23:59 | disposition home or self-care (01) | LOC: WPT 08:28 | PROVIDERS: PCP Nurse Practitioner Family; Visit Provider Nurse Practitioner Family | DX: Z98.1 Arthrodesis status (principal) | CPT/HCPCS: 97110; 97530 ==

== ENCOUNTER → 2025-02-10 13:28 | Outpatient (BNVA) | payer MEDICARE, SELFPAY | PROVIDERS: PCP Nurse Practitioner Family; Visit Provider Nurse Practitioner Family | DX: A69.23 Arthritis due to Lyme disease (principal) | CPT/HCPCS: 86617 ==